=== PATIENT | male | born 1980 | race Caucasian/White ===

== ENCOUNTER → 2016-06-15 | Outpatient (CLI) | payer BC ==
--- NOTE | 2016-06-15 16:20 | CR ---
EXAMINATION: Left knee HISTORY: Pain COMPARISON: None TECHNIQUE: Single PA view FINDINGS/IMPRESSION: Joint spaces appear preserved. Bone mineralization is normal. No acute findings .
== END | disposition home or self-care (01) ==
LOC: MW.CHORTHO 15:26
PROVIDERS: ATTEND Orthopaedic Surgery
DX: M25.562 Pain in left knee (principal)
CPT/HCPCS: 73560-26-LT; 73560-LT

== ENCOUNTER → 2016-06-17 | Outpatient (CLI) | payer BC ==
--- NOTE | 2016-06-18 12:56 | MR ---
EXAM DATE: 06/17/16 PATIENT'S AGE: 35 Patient: OPAL NEAL Facility: [place], [place] Site . Site : [id number] Study: MRI Knee Left [id number]/20/2017 8:48:01 PM Ordering Physician: Dionna Moreno Final Report: HISTORY: Knee pain with history of injury 1 year ago. Technique: Routine knee protocol. Findings: Medial compartment: Medial meniscus: The medial meniscus is intact and unremarkable. Articular cartilage: The articular cartilage surfaces are smooth and normally maintained. Lateral compartment: Lateral meniscus: The lateral meniscus is intact and unremarkable. Articular cartilage: The articular cartilage surfaces are smooth and normally maintained. Patellofemoral compartment: The articular cartilage surfaces of the patella are within normal limits. There is focal grade 2 chondromalacia in the central trochlear sulcus as noted on image 14 of series 601. Ligaments: The anterior cruciate, posterior cruciate, medial collateral and lateral collateral ligaments are intact. Extensor mechanism: The quadriceps and patellar tendons was the medial and lateral patellar retinacula are intact. Bones and soft tissues: No findings for transcortical or osteochondral fracture. No joint effusion or loose body is noted. There is a 3 cm posteromedial Jacobs`s cyst present. 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 No meniscus or ligament tear is noted. Dictated by Kirk Valdez MD @ Jun 18 2016 12:49PM (Electronic Signature) Report Signed by Proxy and Original Signed Document filed in the Medical Record. MAX[facility]
== END ==
LOC: MW.MRI 18:02
PROVIDERS: ATTEND Orthopaedic Surgery
DX: M25.562 Pain in left knee (principal)
CPT/HCPCS: 73721-26-LT; 73721-LT

== ENCOUNTER 2024-02-22 10:57 | Emergency (ER) | payer BC ==
[2024-02-22] MEDS: Sodium Chloride 0.9% 1,000 ML IV STA (11:25)
[2024-02-22 11:27] LABS: BASOPHILS ABSOLUTE AUTO 0.05 K/uL (0.00-0.20); BASOPHILS PERCENT AUTO 0.4 % (0.0-1.0); EOSINOPHILS ABSOLUTE AUTO 0.42 K/uL (0.00-0.45); EOSINOPHILS PERCENT AUTO 3.4 % (0.0-6.0); HEMATOCRIT 45.4 % (42.0-52.0); HEMOGLOBIN 15.2 g/dL (14.0-18.0); IMMATURE GRAN ABSOLUTE AUTO 0.12 K/uL (0.00-0.05); LYMPHOCYTES ABSOLUTE AUTO 2.84 K/uL (1.00-4.80); LYMPHOCYTES PERCENT AUTO 22.9 % (24.0-44.0); MEAN CORPUSCULAR HEMOGLOBIN 27.8 pg (28.0-32.0); MEAN CORPUSCULAR HGB CONC 33.5 g/dL (32.0-36.0); MEAN CORPUSCULAR VOLUME 83.2 fL (83.0-99.0); MEAN PLATELET VOLUME 8.8 fL (9.4-12.4); MONOCYTES ABSOLUTE AUTO 0.98 K/uL (0.00-0.80); MONOCYTES PERCENT AUTO 7.9 % (0.0-8.0); NEUTROPHILS ABSOLUTE AUTO 7.99 K/uL (1.80-7.70); NEUTROPHILS PERCENT AUTO 64.4 % (41.0-71.0); PLATELET COUNT,PLT 389 K/uL (150-400); RED BLOOD CELL COUNT 5.46 M/uL (4.52-5.90)
[2024-02-22 11:56] LABS: A/G RATIO 0.9 (0.9-1.6); ALBUMIN 3.9 g/dL (3.4-5.0); BILIRUBIN TOTAL 0.5 mg/dL (0.2-1.0); CALCIUM 9.4 mg/dL (8.5-10.1); CARBON DIOXIDE,CO2 29.1 mmol/L (21.0-32.0); CREATININE 1.1 mg/dL (0.8-1.3); EST CRCL DRUG DOSING (CG) 102.75 mL/min; POTASSIUM,K 3.9 mmol/L (3.5-5.1); PROTEIN TOTAL,TP 8.1 g/dL (6.4-8.2)
[2024-02-22] MEDS: Iopamidol 755 Mg/ML 100 ML Bottle IVPUSH ONE (12:06)
== END 2024-02-22 13:46 | disposition home or self-care (01) ==
LOC: MW.ED 10:57
DX: R00.0 Tachycardia, unspecified (principal); M79.671 Pain in right foot; I10 Essential (primary) hypertension; Z79.899 Other long term (current) drug therapy; Z75.8 Other problems related to medical facilities and other health care
CPT/HCPCS: 36415; 71275; 80053; 83735; 84484; 85025; 87428; 93005; 93971; 96360; 99285; J7030; Q9967